=== PATIENT | female | born 1955 | race Caucasian/White ===

== ENCOUNTER 2021-04-26 12:42 | Emergency (ER) | payer OTHER, MEDICAID, SELFPAY ==
[~2021-04-26] VITALS: Ht 157.5 cm; Wt 122.5 kg
--- NOTE | 2021-04-26 12:45 | NUR ---
Pt brought by sister, [id number], pt presents to ER with medical clearance prior going to [facility], skin pink and warm, cap refill <3, VSS, respirations even and unlabored.
[2021-04-26 12:53] VITALS: BP_SYST 141
--- NOTE | 2021-04-26 13:05 | NUR ---
Dr Art evaluating patient in the triage room
[2021-04-26 13:25] LABS: RED BLOOD CELL COUNT(AUTO) 4.49 MIL/uL (4.2-6.2); WHITE BLOOD COUNT (AUTO) 7.2 K/uL (4.8-10.8)
[2021-04-26 13:26] LABS: BASOPHILS # (AUTO) 0.1 K/uL (0.0-0.2); BASOPHILS % (AUTO) 0.7 % (0.0-2.0); EOSINOPHILS # (AUTO) 0.5 K/uL (0.0-0.4); EOSINOPHILS % (AUTO) 7.6 % (0.0-4.0); HEMATOCRIT 40.7 % (36-48); HEMOGLOBIN 13.6 g/dL (12.0-16.0); LYMPHOCYTES % (AUTO) 27.9 % (20.5-51.5); MEAN CORPUSCULAR HEMOGLOBIN 30 pg (27-31); MEAN CORPUSCULAR HGB CONC 33 % (32-36); MEAN CORPUSCULAR VOLUME 91 fL (79.0-98.0); MONOCYTES # (AUTO) 0.4 K/uL (0.0-1.0); MONOCYTES % (AUTO) 5.1 % (1.7-9.3); NEUTROPHILS # (AUTO) 4.2 K/uL (1.8-7.7); NEUTROPHILS % (AUTO) 58.7 % (40.0-70.0); PLATELET COUNT (AUTO) 216 K/uL (130-430); RED CELL DISTRIBUTION WIDTH 13.2 % (9.0-15.0)
[2021-04-26 13:36] LABS: ANION GAP 7 (5-15); CALCIUM 8.7 mg/dL (8.4-11.0); CHLORIDE 109 mmol/L (98-107); CREATININE 1.07 mg/dL (0.55-1.30); GLUCOSE 108 mg/dL (70-99); POTASSIUM 4.4 mmol/L (3.5-5.1); SODIUM SERUM 141 mmol/L (136-145); UREA NITROGEN, BLOOD 15 mg/dL (8-21)
[2021-04-26 13:39] LABS: GFR AFRICAN AMERICAN 66 mL/min (>90)
[2021-04-26 13:42] LABS: ACETAMINOPHEN < 1 ug/mL (1-30); ALANINE AMINOTRANSFERASE 24 U/L (12-78); ALBUMIN 3.2 g/dL (3.4-4.8); ALCOHOL, BLOOD < 3 mg/dL (<10); ASPARTATE AMINOTRANSFERASE 11 U/L (10-37); TOTAL BILIRUBIN 0.5 mg/dL (0.0-1.0)
[2021-04-26 13:46] LABS: BILIRUBIN,URINE NEGATIVE (NEGATIVE); BLOOD, URINE NEGATIVE (NEGATIVE); CLARITY/URINE SLIGHTLY HAZY (CLEAR); COLOR,URINE YELLOW (YELLOW); GLUCOSE,URINE NEGATIVE (NEGATIVE); KETONES,URINE NEGATIVE (NEGATIVE); LEUKOCYTE ESTERASE ,URINE NEGATIVE (NEGATIVE); NITRITE, URINE NEGATIVE (NEGATIVE); PH,URINE 5.5 (5.0-8.0); PROTEIN URINE NEGATIVE (NEGATIVE); UROBILINOGEN,URINE 0.2 (0.2-1.0)
[2021-04-26 14:12] LABS: BARBITURATE, URINE NEGATIVE (NEG <=200); BENZODIAZEPINE, URINE NEGATIVE (NEG <=150); CANNABINOID, URINE NEGATIVE (NEG <=50); COCAINE, URINE NEGATIVE (NEG <=150); METHAMPHETAMINES SCREEN,URINE NEGATIVE (NEG <=500); OPIATE, URINE NEGATIVE (NEG <=100); PHENCYCLIDINE SCREEN,URINE NEGATIVE (NEG <=25); UR TRICYCLIC ANTIDEPRESSANTS NEGATIVE (NEG <=300); URINE AMPHETAMINE NEGATIVE (NEG <=500); URINE METHADONE NEGATIVE (NEG <=200); URINE OXYCODONE SCREEN NEGATIVE (NEG <=100); URINE PROPOXYPHENE SCREEN NEGATIVE (NEG <=300)
--- NOTE | 2021-04-26 14:40 | NUR ---
PT MEDICALLY CLEARED.
[2021-04-26 14:46] VITALS: BP_SYST 141
--- NOTE | 2021-04-26 14:46 | NUR ---
Patient given written and verbal discharge instructions and verbalizes understanding. ER MD discussed with patient the results and treatment provided. Patient in stable condition. ID arm band removed. NO Rx of given. Patient educated on pain management and to follow up with PMD. Pain Scale 0. Opportunity for questions provided and answered. Medication side effect fact sheet provided.
== END 2021-04-26 14:46 ==
LOC: SED 12:42
DX: F23 Brief psychotic disorder (principal); I12.9 Hypertensive chronic kidney disease with stage 1 through stage 4 chronic kidney disease, or unspecified chronic kidney disease; N18.9 Chronic kidney disease, unspecified; J44.9 Chronic obstructive pulmonary disease, unspecified; E78.00 Pure hypercholesterolemia, unspecified; F32.9 Major depressive disorder, single episode, unspecified
CPT/HCPCS: 36415; 80053; 80307; 81003; 81025; 85025; 87426; 99283; G0480; G0481; G0482

== ENCOUNTER 2021-12-15 10:40 | Inpatient (IN) | payer OTHER, MEDICAID ==
[~2021-12-15] VITALS: Ht 182.9 cm; Wt 135.2 kg
[2021-12-15 11:06] VITALS: BP_SYST 125
[2021-12-15] MEDS ORDERED: DEXAMETHASONE SOD PHOSPHATE 10 MG/ML VIAL IVP ONE (11:15)
[2021-12-15] MEDS ORDERED: ALBUTEROL SULFATE 0.083% 2.5 MG/3 ML VIAL.NEB INH ONE (11:15)
[2021-12-15] MEDS ORDERED: DOXYCYCLINE HYCLATE 100 MG in D5W 100 ML IV ONE (11:15)
[2021-12-15 11:31] LABS: BASOPHILS % (AUTO) 0.7 % (0.0-2.0); EOSINOPHILS # (AUTO) 0.1 K/uL (0.0-0.4); EOSINOPHILS % (AUTO) 2.2 % (0.0-4.0); HEMATOCRIT 36.7 % (36-48); LYMPHOCYTES # (AUTO) 1.1 K/uL (1.0-5.5); LYMPHOCYTES % (AUTO) 25.2 % (20.5-51.5); MEAN CORPUSCULAR VOLUME 90 fL (79.0-98.0); MONOCYTES # (AUTO) 0.5 K/uL (0.0-1.0); MONOCYTES % (AUTO) 11.3 % (1.7-9.3); NEUTROPHILS # (AUTO) 2.5 K/uL (1.8-7.7); NEUTROPHILS % (AUTO) 60.6 % (40.0-70.0); PLATELET COUNT (AUTO) 157 K/uL (130-430); RED BLOOD CELL COUNT(AUTO) 4.09 MIL/uL (4.2-6.2); RED CELL DISTRIBUTION WIDTH 13.9 % (9.0-15.0); WHITE BLOOD COUNT (AUTO) 4.2 K/uL (4.8-10.8)
[2021-12-15 11:44] LABS: ANION GAP 8 (5-15); CALCIUM 8.6 mg/dL (8.4-11.0); CHLORIDE 103 mmol/L (98-107); CREATININE 1.21 mg/dL (0.55-1.30); GLUCOSE 109 mg/dL (70-99); POTASSIUM 4.1 mmol/L (3.5-5.1); UREA NITROGEN, BLOOD 11 mg/dL (8-21)
[2021-12-15 11:45] LABS: GFR AFRICAN AMERICAN 57 mL/min (>90)
[2021-12-15 11:53] LABS: ALANINE AMINOTRANSFERASE 19 U/L (12-78); ALBUMIN 3.1 g/dL (3.4-4.8); ASPARTATE AMINOTRANSFERASE 18 U/L (10-37); TOTAL BILIRUBIN 0.6 mg/dL (0.0-1.0)
[2021-12-15] MEDS ORDERED: DOXYCYCLINE HYCLATE 100 MG VIAL IV ONE (16:02)
[2021-12-15] MEDS ORDERED: DEXAMETHASONE SOD PHOSPHATE 10 MG/ML VIAL ONE (16:03)
[2021-12-15] MEDS ORDERED: ACETAMINOPHEN 325 MG TABLET PO PRN (16:15)
[2021-12-15] MEDS ORDERED: LOSA50TA28 PO (16:24)
[2021-12-15] MEDS ORDERED: TRAZ50TA54 PO (16:24)
[2021-12-15] MEDS ORDERED: VALB80CA PO (16:24)
[2021-12-15] MEDS ORDERED: MEMA10TA56 PO (16:24)
[2021-12-15] MEDS ORDERED: ARIP10TA52 PO (16:24)
[2021-12-15] MEDS ORDERED: FURO20TA4 PO (16:24)
[2021-12-15] MEDS ORDERED: ACET325C6 PO (16:24)
[2021-12-15] MEDS ORDERED: ATOR20TA64 PO (16:24)
[2021-12-15] MEDS ORDERED: OMEP-268 PO (16:24)
[2021-12-15] MEDS ORDERED: LOPE2CAP PO (16:24)
[2021-12-15] MEDS ORDERED: ATEN50TA PO (16:24)
[2021-12-15] MEDS ORDERED: FLUT12AE INH (16:24)
[2021-12-15] MEDS ORDERED: CHOLECALCIFEROL (VITAMIN D3) 5,000 UNIT TABLET PO ONE (16:45)
[2021-12-15] MEDS ORDERED: CEFEPIME 1 GM in D5W 50 ML IV ONE (16:45)
[2021-12-15] MEDS ORDERED: CEFEPIME 1 GM/VIAL (MAXIPIME) ONE (17:06)
[2021-12-15] MEDS ORDERED: VANCOMYCIN HCL 2,000 MG in NS 500 ML IV SCH (18:00)
[2021-12-15] MEDS ORDERED: LOPERAMIDE HCL 2 MG CAPSULE PO PRN (18:45)
[2021-12-15] MEDS: D5/0.45 NS 1,000 ML IV SCH (19:21)
[2021-12-15 20:00] VITALS: BP_SYST 132
[2021-12-15] MEDS ORDERED: SALMETEROL INH SCH (21:00)
[2021-12-15] MEDS ORDERED: FLUTICASONE INH SCH (21:00)
[2021-12-15] MEDS: MEMANTINE HCL 5 MG TABLET PO SCH (21:11)
[2021-12-15] MEDS: ENOXAPARIN SODIUM 40 MG/0.4 ML SYRINGE SUBCUT SCH (21:12)
[2021-12-15 21:17] VITALS: BP_SYST 125
[2021-12-15] MEDS: INSULIN REGULAR, HUMAN 100 UNITS/ML, 3 ML VIAL (humuLIN R) SUBCUT PRN (21:26)
[2021-12-15 23:53] VITALS: BP_SYST 133
[2021-12-16] MEDS: D5/0.45 NS 1,000 ML IV SCH ×3 (02:15→22:15)
[2021-12-16] MEDS: CEFEPIME 1 GM in D5W 50 ML IV SCH ×2 (07:03→18:23)
[2021-12-16] MEDS ORDERED: ARIPiprazole 2 MG TAB PO SCH (09:00)
[2021-12-16] MEDS: LOSARTAN POTASSIUM 50 MG TABLET (COZAAR) PO SCH (09:00)
[2021-12-16] MEDS: ENOXAPARIN SODIUM 40 MG/0.4 ML SYRINGE SUBCUT SCH ×2 (09:43→21:13)
[2021-12-16] MEDS: CHOLECALCIFEROL (VITAMIN D3) 5,000 UNIT TABLET PO SCH (09:44)
[2021-12-16 09:50] LABS: BASOPHILS % (AUTO) 0.7 % (0.0-2.0); EOSINOPHILS % (AUTO) 0.2 % (0.0-4.0); HEMATOCRIT 36.9 % (36-48); LYMPHOCYTES # (AUTO) 0.6 K/uL (1.0-5.5); LYMPHOCYTES % (AUTO) 14.4 % (20.5-51.5); MEAN CORPUSCULAR VOLUME 90 fL (79.0-98.0); MONOCYTES # (AUTO) 0.1 K/uL (0.0-1.0); MONOCYTES % (AUTO) 2.4 % (1.7-9.3); NEUTROPHILS # (AUTO) 3.3 K/uL (1.8-7.7); NEUTROPHILS % (AUTO) 82.3 % (40.0-70.0); PLATELET COUNT (AUTO) 160 K/uL (130-430); RED BLOOD CELL COUNT(AUTO) 4.09 MIL/uL (4.2-6.2); RED CELL DISTRIBUTION WIDTH 14.1 % (9.0-15.0)
[2021-12-16] MEDS: traZODone HCL 50 MG TABLET (DESYREL) PO SCH (10:00)
[2021-12-16 10:01] LABS: CALCIUM 8.7 mg/dL (8.4-11.0); CREATININE 1.26 mg/dL (0.55-1.30)
[2021-12-16] MEDS: ATORVASTATIN 20 MG TABLET PO SCH (10:01)
[2021-12-16] MEDS: MEMANTINE HCL 5 MG TABLET PO SCH ×2 (10:01→21:13)
[2021-12-16] MEDS: ATENOLOL 50 MG TABLET (TENORMIN) PO SCH (10:07)
[2021-12-16] MEDS ORDERED: ARIPiprazole 5 MG TAB PO ONE (10:45)
[2021-12-16 11:55] VITALS: BP_SYST 103
[2021-12-16 12:30] VITALS: BP_SYST 103
[2021-12-16 12:42] LABS: LACTATE DEHYDROGENASE 164 U/L (81-234)
[2021-12-16 12:55] LABS: C-REACTIVE PROTEIN QUANT < 0.2 mg/dL (0-0.5)
[2021-12-16] MEDS: AZITHROMYCIN 500 MG in NS 250 ML IV SCH (14:00)
[2021-12-16 16:30] VITALS: BP_SYST 120
[2021-12-16] MEDS: DEXAMETHASONE SOD PHOSPHATE 10 MG/ML VIAL IVP SCH (16:50)
[2021-12-16] MEDS ORDERED: ALBUTEROL SULFATE 0.083% 2.5 MG/3 ML VIAL.NEB INH SCH (19:00)
[2021-12-16 20:00] VITALS: BP_SYST 112; BP_SYST 117
[2021-12-16] MEDS: BUDESONIDE 0.5 MG/2 ML AMPUL.NEB INH SCH (20:33)
[2021-12-17] VITALS: BP_SYST 114
[2021-12-17] MEDS: NICOTINE 21 MG/24 HR PATCH.TD24 TD SCH ×2 (01:03→08:34)
[2021-12-17] MEDS: CEFEPIME 1 GM in D5W 50 ML IV SCH ×3 (06:36→20:39)
[2021-12-17 08:15] VITALS: BP_SYST 126
[2021-12-17] MEDS: BUDESONIDE 0.5 MG/2 ML AMPUL.NEB INH SCH ×2 (08:20→20:15)
[2021-12-17] MEDS: CHOLECALCIFEROL (VITAMIN D3) 5,000 UNIT TABLET PO SCH (08:32)
[2021-12-17] MEDS: MEMANTINE HCL 5 MG TABLET PO SCH ×2 (08:32→20:39)
[2021-12-17] MEDS: ATORVASTATIN 20 MG TABLET PO SCH (08:32)
[2021-12-17] MEDS: ARIPiprazole 5 MG TAB PO SCH (08:32)
[2021-12-17] MEDS: ATENOLOL 50 MG TABLET (TENORMIN) PO SCH (08:33)
[2021-12-17] MEDS: traZODone HCL 50 MG TABLET (DESYREL) PO SCH ×2 (08:33→20:44)
[2021-12-17] MEDS: LOSARTAN POTASSIUM 50 MG TABLET (COZAAR) PO SCH (08:33)
[2021-12-17] MEDS: ENOXAPARIN SODIUM 40 MG/0.4 ML SYRINGE SUBCUT SCH ×2 (08:34→20:42)
[2021-12-17] MEDS: AZITHROMYCIN 500 MG in NS 250 ML IV SCH (13:32)
[2021-12-17] MEDS ORDERED: PANTOPRAZOLE SODIUM 40 MG TAB PO ONE (14:00)
[2021-12-17 15:42] VITALS: BP_SYST 106
[2021-12-17] MEDS: DEXAMETHASONE SOD PHOSPHATE 10 MG/ML VIAL IVP SCH (16:43)
[2021-12-17 17:39] VITALS: BP_SYST 118
[2021-12-17 19:00] VITALS: BP_SYST 136
[2021-12-17 20:00] VITALS: BP_SYST 136
[2021-12-18] VITALS: BP_SYST 128
[2021-12-18 05:00] VITALS: BP_SYST 127
[2021-12-18] MEDS: BUDESONIDE 0.5 MG/2 ML AMPUL.NEB INH SCH ×2 (07:25→17:40)
[2021-12-18 07:49] VITALS: BP_SYST 127
[2021-12-18] MEDS: ENOXAPARIN SODIUM 40 MG/0.4 ML SYRINGE SUBCUT SCH ×2 (09:29→21:32)
[2021-12-18] MEDS: ARIPiprazole 5 MG TAB PO SCH (09:29)
[2021-12-18] MEDS: MEMANTINE HCL 5 MG TABLET PO SCH ×2 (09:30→21:31)
[2021-12-18] MEDS: CHOLECALCIFEROL (VITAMIN D3) 5,000 UNIT TABLET PO SCH (09:30)
[2021-12-18] MEDS: PANTOPRAZOLE SODIUM 40 MG TAB PO SCH (09:30)
[2021-12-18] MEDS: ATORVASTATIN 20 MG TABLET PO SCH (09:30)
[2021-12-18] MEDS: LOSARTAN POTASSIUM 50 MG TABLET (COZAAR) PO SCH (09:30)
[2021-12-18] MEDS: ATENOLOL 50 MG TABLET (TENORMIN) PO SCH (09:31)
[2021-12-18 12:01] VITALS: BP_SYST 122
[2021-12-18 12:45] VITALS: BP_SYST 122
[2021-12-18 13:35] LABS: BASOPHILS % (AUTO) 0.2 % (0.0-2.0); HEMATOCRIT 36.7 % (36-48); LYMPHOCYTES % (AUTO) 26.5 % (20.5-51.5); MEAN CORPUSCULAR VOLUME 90 fL (79.0-98.0); MONOCYTES # (AUTO) 0.3 K/uL (0.0-1.0); MONOCYTES % (AUTO) 3.7 % (1.7-9.3); NEUTROPHILS # (AUTO) 5.3 K/uL (1.8-7.7); NEUTROPHILS % (AUTO) 69.6 % (40.0-70.0); PLATELET COUNT (AUTO) 203 K/uL (130-430); RED BLOOD CELL COUNT(AUTO) 4.07 MIL/uL (4.2-6.2); RED CELL DISTRIBUTION WIDTH 14.1 % (9.0-15.0); WHITE BLOOD COUNT (AUTO) 7.6 K/uL (4.8-10.8)
[2021-12-18] MEDS: AZITHROMYCIN 500 MG in NS 250 ML IV SCH (13:54)
[2021-12-18] MEDS ORDERED: NICOTINE 21 MG/24 HR PATCH.TD24 TD ONE (14:45)
[2021-12-18] MEDS: DEXAMETHASONE SOD PHOSPHATE 10 MG/ML VIAL IVP SCH (15:25)
[2021-12-18 16:04] VITALS: BP_SYST 114
[2021-12-18] MEDS: CEFEPIME 1 GM in D5W 50 ML IV SCH (16:20)
[2021-12-18] MEDS: traZODone HCL 50 MG TABLET (DESYREL) PO SCH (21:30)
[2021-12-18] MEDS: INSULIN REGULAR, HUMAN 100 UNITS/ML, 3 ML VIAL (humuLIN R) SUBCUT PRN (21:45)
[2021-12-19 07:00] VITALS: BP_SYST 111
[2021-12-19] MEDS: CEFEPIME 1 GM in D5W 50 ML IV SCH ×2 (08:07→17:34)
[2021-12-19] MEDS: BUDESONIDE 0.5 MG/2 ML AMPUL.NEB INH SCH ×2 (08:07→20:33)
[2021-12-19] MEDS: ARIPiprazole 5 MG TAB PO SCH (09:41)
[2021-12-19] MEDS: ATORVASTATIN 20 MG TABLET PO SCH (09:41)
[2021-12-19] MEDS: LOSARTAN POTASSIUM 50 MG TABLET (COZAAR) PO SCH (09:42)
[2021-12-19] MEDS: ATENOLOL 50 MG TABLET (TENORMIN) PO SCH (09:42)
[2021-12-19] MEDS: PANTOPRAZOLE SODIUM 40 MG TAB PO SCH (09:42)
[2021-12-19] MEDS: CHOLECALCIFEROL (VITAMIN D3) 5,000 UNIT TABLET PO SCH (09:43)
[2021-12-19] MEDS: NICOTINE 21 MG/24 HR PATCH.TD24 TD SCH (09:44)
[2021-12-19] MEDS: ENOXAPARIN SODIUM 40 MG/0.4 ML SYRINGE SUBCUT SCH ×2 (09:44→21:37)
[2021-12-19] MEDS: MEMANTINE HCL 5 MG TABLET PO SCH ×2 (09:46→21:37)
[2021-12-19] MEDS: AZITHROMYCIN 500 MG in NS 250 ML IV SCH ×2 (17:24→17:32)
[2021-12-19] MEDS: DEXAMETHASONE SOD PHOSPHATE 10 MG/ML VIAL IVP SCH (17:25)
[2021-12-19 20:00] VITALS: BP_SYST 116
[2021-12-19] MEDS: traZODone HCL 50 MG TABLET (DESYREL) PO SCH (21:37)
[2021-12-19] MEDS: ALBUTEROL MDI INHALATION 8 GM INH INH PRN (21:49)
[2021-12-20] MEDS: CEFEPIME 1 GM in D5W 50 ML IV SCH ×2 (05:39→17:34)
[2021-12-20 07:00] VITALS: BP_SYST 121; BP_SYST 125
[2021-12-20] MEDS: BUDESONIDE 0.5 MG/2 ML AMPUL.NEB INH SCH ×2 (07:34→22:38)
[2021-12-20 08:00] VITALS: BP_SYST 126
[2021-12-20] MEDS: ARIPiprazole 5 MG TAB PO SCH (10:08)
[2021-12-20] MEDS: LOSARTAN POTASSIUM 50 MG TABLET (COZAAR) PO SCH (10:12)
[2021-12-20] MEDS: ATORVASTATIN 20 MG TABLET PO SCH (10:13)
[2021-12-20] MEDS: MEMANTINE HCL 5 MG TABLET PO SCH ×2 (10:13→21:46)
[2021-12-20] MEDS: PANTOPRAZOLE SODIUM 40 MG TAB PO SCH (10:13)
[2021-12-20] MEDS: CHOLECALCIFEROL (VITAMIN D3) 5,000 UNIT TABLET PO SCH (10:14)
[2021-12-20] MEDS: ATENOLOL 50 MG TABLET (TENORMIN) PO SCH (10:14)
[2021-12-20] MEDS: NICOTINE 21 MG/24 HR PATCH.TD24 TD SCH (10:14)
[2021-12-20] MEDS: ENOXAPARIN SODIUM 40 MG/0.4 ML SYRINGE SUBCUT SCH ×2 (10:14→21:46)
[2021-12-20] MEDS: DEXAMETHASONE SOD PHOSPHATE 10 MG/ML VIAL IVP SCH (16:00)
[2021-12-20 20:00] VITALS: BP_SYST 130
[2021-12-20] MEDS: traZODone HCL 50 MG TABLET (DESYREL) PO SCH (21:45)
[2021-12-21 00:27] VITALS: BP_SYST 111
[2021-12-21] MEDS: CEFEPIME 1 GM in D5W 50 ML IV SCH ×2 (06:02→17:30)
[2021-12-21] MEDS: BUDESONIDE 0.5 MG/2 ML AMPUL.NEB INH SCH (07:51)
[2021-12-21 08:00] VITALS: BP_SYST 127
[2021-12-21 08:30] VITALS: BP_SYST 127
[2021-12-21] MEDS: ARIPiprazole 5 MG TAB PO SCH (08:31)
[2021-12-21] MEDS: MEMANTINE HCL 5 MG TABLET PO SCH ×2 (08:32→21:11)
[2021-12-21] MEDS: LOSARTAN POTASSIUM 50 MG TABLET (COZAAR) PO SCH (08:32)
[2021-12-21] MEDS: ATORVASTATIN 20 MG TABLET PO SCH (08:32)
[2021-12-21] MEDS: PANTOPRAZOLE SODIUM 40 MG TAB PO SCH (08:33)
[2021-12-21] MEDS: CHOLECALCIFEROL (VITAMIN D3) 5,000 UNIT TABLET PO SCH (08:35)
[2021-12-21] MEDS: ATENOLOL 50 MG TABLET (TENORMIN) PO SCH (08:35)
[2021-12-21] MEDS: ENOXAPARIN SODIUM 40 MG/0.4 ML SYRINGE SUBCUT SCH ×2 (08:37→21:10)
[2021-12-21] MEDS: NICOTINE 21 MG/24 HR PATCH.TD24 TD SCH (10:04)
[2021-12-21] MEDS: DEXAMETHASONE SOD PHOSPHATE 10 MG/ML VIAL IVP SCH (16:39)
[2021-12-21 18:09] VITALS: BP_SYST 122
[2021-12-21 20:00] VITALS: BP_SYST 128
[2021-12-21] MEDS: traZODone HCL 50 MG TABLET (DESYREL) PO SCH (21:11)
[2021-12-21] MEDS: INSULIN REGULAR, HUMAN 100 UNITS/ML, 3 ML VIAL (humuLIN R) SUBCUT PRN (21:57)
[2021-12-22 01:22] VITALS: BP_SYST 111
[2021-12-22] MEDS: BUDESONIDE 0.5 MG/2 ML AMPUL.NEB INH SCH ×3 (01:51→20:38)
[2021-12-22] MEDS: CEFEPIME 1 GM in D5W 50 ML IV SCH (05:33)
[2021-12-22 08:00] VITALS: BP_SYST 119
[2021-12-22] MEDS: ARIPiprazole 5 MG TAB PO SCH (08:31)
[2021-12-22] MEDS: LOSARTAN POTASSIUM 50 MG TABLET (COZAAR) PO SCH (08:33)
[2021-12-22] MEDS: MEMANTINE HCL 5 MG TABLET PO SCH ×2 (08:33→21:31)
[2021-12-22] MEDS: ATORVASTATIN 20 MG TABLET PO SCH (08:33)
[2021-12-22] MEDS: PANTOPRAZOLE SODIUM 40 MG TAB PO SCH (08:33)
[2021-12-22] MEDS: ATENOLOL 50 MG TABLET (TENORMIN) PO SCH (08:34)
[2021-12-22] MEDS: CHOLECALCIFEROL (VITAMIN D3) 5,000 UNIT TABLET PO SCH (08:34)
[2021-12-22] MEDS: ENOXAPARIN SODIUM 40 MG/0.4 ML SYRINGE SUBCUT SCH ×2 (08:35→21:33)
[2021-12-22] MEDS: NICOTINE 21 MG/24 HR PATCH.TD24 TD SCH (09:23)
[2021-12-22 12:20] VITALS: BP_SYST 129
[2021-12-22 17:00] VITALS: BP_SYST 112
[2021-12-22] MEDS: DEXAMETHASONE SOD PHOSPHATE 10 MG/ML VIAL IVP SCH (17:11)
[2021-12-22 20:00] VITALS: BP_SYST 127
[2021-12-22] MEDS: traZODone HCL 50 MG TABLET (DESYREL) PO SCH (21:32)
[2021-12-22] MEDS: INSULIN REGULAR, HUMAN 100 UNITS/ML, 3 ML VIAL (humuLIN R) SUBCUT PRN (21:35)
[2021-12-23 08:15] VITALS: BP_SYST 107
[2021-12-23] MEDS: CHOLECALCIFEROL (VITAMIN D3) 5,000 UNIT TABLET PO SCH (09:00)
[2021-12-23] MEDS: NICOTINE 21 MG/24 HR PATCH.TD24 TD SCH (09:00)
[2021-12-23] MEDS: PANTOPRAZOLE SODIUM 40 MG TAB PO SCH (09:00)
[2021-12-23] MEDS: LOSARTAN POTASSIUM 50 MG TABLET (COZAAR) PO SCH (09:00)
[2021-12-23] MEDS: ATORVASTATIN 20 MG TABLET PO SCH (09:00)
[2021-12-23] MEDS: ARIPiprazole 5 MG TAB PO SCH (09:00)
[2021-12-23] MEDS: MEMANTINE HCL 5 MG TABLET PO SCH ×2 (09:00→20:51)
[2021-12-23] MEDS: ATENOLOL 50 MG TABLET (TENORMIN) PO SCH (09:00)
[2021-12-23] MEDS: ENOXAPARIN SODIUM 40 MG/0.4 ML SYRINGE SUBCUT SCH ×2 (09:00→20:52)
[2021-12-23] MEDS: BUDESONIDE 0.5 MG/2 ML AMPUL.NEB INH SCH (09:27)
[2021-12-23 11:44] VITALS: BP_SYST 105
[2021-12-23 15:25] VITALS: BP_SYST 123
[2021-12-23 20:00] VITALS: BP_SYST 116
[2021-12-23] MEDS: traZODone HCL 50 MG TABLET (DESYREL) PO SCH (20:58)
[2021-12-24 07:00] VITALS: BP_SYST 90
[2021-12-24] MEDS: BUDESONIDE 0.5 MG/2 ML AMPUL.NEB INH SCH ×2 (07:42→22:04)
[2021-12-24] MEDS: MEMANTINE HCL 5 MG TABLET PO SCH ×2 (09:30→22:01)
[2021-12-24] MEDS: ATORVASTATIN 20 MG TABLET PO SCH (09:30)
[2021-12-24] MEDS: LOSARTAN POTASSIUM 50 MG TABLET (COZAAR) PO SCH (09:30)
[2021-12-24] MEDS: PANTOPRAZOLE SODIUM 40 MG TAB PO SCH (09:30)
[2021-12-24] MEDS: CHOLECALCIFEROL (VITAMIN D3) 5,000 UNIT TABLET PO SCH (09:31)
[2021-12-24] MEDS: ATENOLOL 50 MG TABLET (TENORMIN) PO SCH (09:31)
[2021-12-24] MEDS: ENOXAPARIN SODIUM 40 MG/0.4 ML SYRINGE SUBCUT SCH ×2 (09:31→22:01)
[2021-12-24] MEDS: ARIPiprazole 5 MG TAB PO SCH (09:32)
[2021-12-24] MEDS: NICOTINE 21 MG/24 HR PATCH.TD24 TD SCH (11:55)
[2021-12-24 12:00] VITALS: BP_SYST 95
[2021-12-24 17:26] VITALS: BP_SYST 159
[2021-12-24 20:30] VITALS: BP_SYST 93
[2021-12-24] MEDS: traZODone HCL 50 MG TABLET (DESYREL) PO SCH (22:00)
[2021-12-25 00:30] VITALS: BP_SYST 91
[2021-12-25] MEDS: BUDESONIDE 0.5 MG/2 ML AMPUL.NEB INH SCH ×2 (08:29→19:46)
[2021-12-25] MEDS: ARIPiprazole 5 MG TAB PO SCH (09:15)
[2021-12-25] MEDS: ATORVASTATIN 20 MG TABLET PO SCH (09:15)
[2021-12-25] MEDS: LOSARTAN POTASSIUM 50 MG TABLET (COZAAR) PO SCH (09:15)
[2021-12-25] MEDS: MEMANTINE HCL 5 MG TABLET PO SCH ×2 (09:15→21:19)
[2021-12-25] MEDS: PANTOPRAZOLE SODIUM 40 MG TAB PO SCH (09:15)
[2021-12-25] MEDS: NICOTINE 21 MG/24 HR PATCH.TD24 TD SCH (09:16)
[2021-12-25] MEDS: ATENOLOL 50 MG TABLET (TENORMIN) PO SCH (09:16)
[2021-12-25] MEDS: CHOLECALCIFEROL (VITAMIN D3) 5,000 UNIT TABLET PO SCH (09:16)
[2021-12-25] MEDS: ENOXAPARIN SODIUM 40 MG/0.4 ML SYRINGE SUBCUT SCH ×2 (09:17→21:20)
[2021-12-25 11:10] VITALS: BP_SYST 96
[2021-12-25 15:57] VITALS: BP_SYST 119
[2021-12-25] MEDS: ALBUTEROL MDI INHALATION 8 GM INH INH PRN (19:45)
[2021-12-25 20:00] VITALS: BP_SYST 90
[2021-12-25] MEDS: traZODone HCL 50 MG TABLET (DESYREL) PO SCH (21:19)
[2021-12-26 01:45] VITALS: BP_SYST 97
[2021-12-26] MEDS: BUDESONIDE 0.5 MG/2 ML AMPUL.NEB INH SCH ×2 (07:00→20:20)
[2021-12-26] MEDS: ATORVASTATIN 20 MG TABLET PO SCH (10:11)
[2021-12-26] MEDS: ARIPiprazole 5 MG TAB PO SCH (10:11)
[2021-12-26] MEDS: PANTOPRAZOLE SODIUM 40 MG TAB PO SCH (10:11)
[2021-12-26] MEDS: CHOLECALCIFEROL (VITAMIN D3) 5,000 UNIT TABLET PO SCH (10:16)
[2021-12-26] MEDS: ATENOLOL 50 MG TABLET (TENORMIN) PO SCH (10:16)
[2021-12-26] MEDS: NICOTINE 21 MG/24 HR PATCH.TD24 TD SCH (10:17)
[2021-12-26] MEDS: ENOXAPARIN SODIUM 40 MG/0.4 ML SYRINGE SUBCUT SCH (10:17)
[2021-12-26] MEDS: MEMANTINE HCL 5 MG TABLET PO SCH (10:18)
[2021-12-26] MEDS: LOSARTAN POTASSIUM 50 MG TABLET (COZAAR) PO SCH (10:18)
[2021-12-26 12:02] VITALS: BP_SYST 97
[2021-12-26 15:29] VITALS: BP_SYST 101
[2021-12-26 15:40] VITALS: BP_SYST 100
== END 2021-12-26 22:00 | DRG 177 ==
LOC: SED 10:40 → STU 14:39 → SMU 12-18 15:45
PROVIDERS: ADMIT Family Medicine; ATTEND Family Medicine
DX: U07.1 COVID-19 (principal); J12.82 Pneumonia due to coronavirus disease 2019; J44.0 Chronic obstructive pulmonary disease with (acute) lower respiratory infection; E11.9 Type 2 diabetes mellitus without complications; F17.210 Nicotine dependence, cigarettes, uncomplicated; I10 Essential (primary) hypertension; K52.9 Noninfective gastroenteritis and colitis, unspecified
CPT/HCPCS: 36415; 71045; 80048; 80053; 82962; 83605; 83615; 83735; 84484; 85025; 85379; 86140; 87040; 87081; 94640; 94760; 96365; 96375; 99285; G0378; J0456; J0692; J1100; J1650; J1815; J3370; J3490; J7040; J7050; J7060; J7613; J7626